=== PATIENT | female | born 1985 | race Caucasian/White ===

== ENCOUNTER 2017-02-17 04:29 | Inpatient (IN) | payer OTHER ==
[2017-02-17] MEDS ORDERED: Penicillin G Potassium 5 MILLUNITS in Sodium Chloride 0.9% 100 ML IV STA (08:01)
[2017-02-17] MEDS ORDERED: Lactated Ringers 1,000 ML IV SCH (08:15)
[2017-02-17] MEDS ORDERED: Ondansetron 4 MG/2 ML SDV IV ONE (08:23)
[2017-02-17] MEDS ORDERED: Benzocaine/Menthol 20%-0.5% Spray 56 GM Canister TOP PRN (08:54)
[2017-02-17] MEDS ORDERED: Oxytocin 10 Units/1 ML SDV IM PRN (08:54)
[2017-02-17] MEDS ORDERED: Misoprostol 400 MCG (4 X 100 MCG TAB) RECTAL PRN (08:54)
[2017-02-17] MEDS ORDERED: Simethicone 80 MG Tab.Chew PO PRN (08:54)
[2017-02-17] MEDS ORDERED: Sodium Chloride 0.9% 10 ML Syringe FLUSH PRN (08:54)
[2017-02-17] MEDS ORDERED: Carboprost Tromethamine 250 MCG/1 ML Amp IM PRN (08:54)
[2017-02-17] MEDS ORDERED: Zolpidem 5 MG Tab PO PRN (08:54)
[2017-02-17] MEDS ORDERED: Oxytocin/Normal Saline 30 UNIT/500 ML BAG IV SCH (09:00)
[2017-02-17] MEDS: Docusate Sodium 100 MG Cap PO PRN ×2 (10:29→21:31)
[2017-02-17] MEDS: Prenatal Multivitamin with Calcium/Folic Acid/Iron Tab PO SCH (10:29)
[2017-02-17] MEDS: Ibuprofen 800 MG Tab PO PRN ×2 (10:29→19:34)
--- NOTE | 2017-02-17 13:15 | DEL ---
DATE: 02/18/2016 PREOPERATIVE DIAGNOSES: 1. Intrauterine at 38 and 4/7 weeks confirmed with 9 week ultrasound. 2. Active labor with contractions with rapid late first stage of labor and subsequently rapid delivery. 3. Gestational thrombocytopenia with platelets of 133,000 upon admit. 4. Group B Streptococcus positive with antibiotics called for in a stat fashion with patient on first dose with delivery. 5. Impaired glucose tolerance. 6. 3, para 2-0-0-2. POSTOPERATIVE DIAGNOSES: 1. Intrauterine at 38 and 4/7 weeks confirmed with 9 week ultrasound, delivered. 2. Active labor with contractions with rapid late first stage of labor and subsequently rapid delivery. 3. Gestational thrombocytopenia with platelets a 133,000 upon admit. 4. Group B Streptococcus positive with antibiotics called for in a stat fashion with patient on first dose with delivery. 5. Impaired glucose tolerance. 6. 3, para 2-0-0-2. 7. First-degree perineal laceration, less than 1 cm, nonbleeding, non-repaired after discussion with the patient. PROCEDURE PERFORMED: NST and then subsequent spontaneous vaginal delivery. PERFORMED BY: Franck Ojeda MD. ANESTHESIA/ANALGESIA: None. ESTIMATED BLOOD LOSS: 150 mL. FINDING: Male with scores of 9 and 9, weight pending. SUMMARY OF EVENTS: The patient is a 31-year-old, G3, P2-0-0-2 intrauterine at 38 and 4/7 weeks confirmed by 9 week ultrasound admitted on the above date with the above diagnoses. She was initially evaluated, was found to be 3+ cm, which she has been around in the clinic. Followed for an hour, went to about 4 cm, and then contractions were not regular at that time. She subsequently followed and went rapidly into the first stage of labor. She was found to be 5+ cm requesting intrathecal, this was called for, as well as penicillin called for in a stat fashion. Subsequently, patient rapidly progressed into the second stage of labor. Penicillin was currently being given as she was in the second stage of labor. She had an urge to push and was found to be at +2 station and complete. Subsequently pushed with 2 contractions and subsequently vertex was delivered in JOSÉ LUIS presentation followed by anterior and posterior shoulder as well as rest of the without difficulty. Mouth and nares were suctioned. Cord was doubly clamped and cut. Infant was resuscitated on the warmer. Then, approximately 10 mL cord blood obtained for labs. Placenta then delivered with gentle cord traction and fundal massage within 5 minutes. Perineum, vagina, and perirectal areas were then examined with a small first- degree perineal laceration, nonbleeding and non-repaired after discussion with the patient. Mother and infant are currently stable at the time of dictation. [facility] /[id number]
--- NOTE | 2017-02-17 13:18 | HP ---
PATIENT IDENTIFICATION: Lupe Plascencia is a 31-year-old, G3, P2-0-0-2 intrauterine at 38 and 4/7 weeks, confirmed by 9 week ultrasound who presents with contractions. HISTORY OF PRESENT ILLNESS: The patient states contractions started on nuclear logging engineer of admission, increasing in frequency and intensity to the point that they are felt every 2 to 5 minutes, felt in the lower abdomen, time it made worse. Nothing seemed to make it better. She questioned the nurse if she leaking. Evaluation done by nurse, Nitrazine negative. Bag of water was suspected and the patient was kept on the floor to evaluate for potential for labor. She changed from a 3+ to 4 cm over an hour and a half and subsequently her contractions were coming every 2 to 5 minutes at that time. She subsequently was followed closely thereafter and nurse found her to be rapidly dilating to more than 5 cm. Penicillin was called for in a stat fashion and patient was requesting intrathecal. PAEDIATRIC PHYSIOTHERAPIST was subsequently called. As penicillin was being given, patient subsequently had a spontaneous vaginal delivery. Please see delivery note for further details. Records were called for and reviewed as below and supplemented by patient history. OBSTETRICAL HISTORY: 1. On 03/31/2015, delivered a female, 39 and 1/7 weeks, weighing 3232 g. 2. On 07/21/2008, delivered a male, spontaneous vaginal delivery at 40 weeks, 3657 g. ANTEPARTUM LABS: ABO blood type A positive, negative antibody. Rubella immune. Syphilis antibody was nonreactive. Negative hepatitis B surface antigen. Negative hep C, HIV, GC, and Chlamydia. Wet prep within normal limits. One- hour GTT was 155, 3-hour GTT negative for gestational diabetes. GBS was positive in 3rd trimester. Platelets on 02/11/2017, were 140 with hemoglobin being 13. ALLERGIES: None. MEDICATIONS: vitamins. PAST MEDICAL/PAST SURGICAL HISTORY: Remarkable for tympanostomy tube placement as a child and tympanic membrane repair as a child. FAMILY HISTORY: Mother side has colon cancer. Hypertension in father. Negative family history of anesthesia, bleeding problems, defects, thyroid disease, or diabetes. SOCIAL HISTORY: , lives with in [place]. They have a cat in the household. Working at [employer] in the [place]. No smoke, no alcohol, no tobacco use. REVIEW OF SYSTEMS: Quickly obtained, and otherwise felt to be noncontributory. OBJECTIVE: Vital Signs: Blood pressure 118/81, heart rate 72, temperature 97.9. Appearance: Female appears stated age, acting appropriate for age, nontoxic in appearance, breathing through her contractions, answering questions appropriately upon my evaluation. HEENT: Head is atraumatic. EOMs intact. No scleral icterus. No obvious otorhinorrhea. Mucous members moist. Neck: No obvious tenderness. Lungs: Clear to auscultation bilaterally. Heart: S1 and S2. Regular rate and rhythm. Abdomen: Gravid. Monitors were applied. Genitourinary: Normal external female genitalia. Normal position and presentation of urethra. Vaginal exam per me, upon my initial evaluation, found her to be complete, +2 station, vertex suspected. Extremities: No peripheral edema. Deep tendon reflexes 2-3 out of 4 bilaterally and symmetric in the lower extremities. Psychiatric: Mood and affect are congruent. Judgment and insight intact. Skin: No cyanosis, clubbing, or jaundice. Minimal excoriations and 2-3 mm erythematous waller noted on the lower extremities, which the patient has had chronically. LABORATORY DATA: Reveal white cell count 8.9, hemoglobin 11.9, platelets a 133,000. Initial evaluation with nonstress test revealed her to be reactive and reassuring. Tocometer revealed only occasional contraction at times. ASSESSMENT: 1. Intrauterine 38 and 4/7 weeks confirmed by 9 week ultrasound. 2. Active labor. 3. Gestational thrombocytopenia. 4. Group B Streptococcus positive, on the 1st dose of antibiotics with delivery, please see delivery note for further details. 5. Impaired glucose tolerance. 6. Status post 2 doses of betamethasone in 01/2017 for uterine contractions. 7. 3, para 2-0-0-2. PLAN: The patient was admitted. She went on to have a rapid labor then subsequent rapid delivery. Please see delivery note for further details. [facility] /[id number]
--- NOTE | 2017-02-17 13:30 | OBOUT ---
DATE: 02/17/2017 DATE AND TIME OF NST: Date: 02/17/2017. Time: 0442 hours to 0502 hours. REASON FOR NST: 1. Intrauterine at 38 and 4/7 weeks confirmed by 9 week ultrasound. 2. Contractions, questionable labor. 3. Gestational thrombocytopenia. 4. GBS positive. 5. Impaired glucose tolerance. 6. G3, P2-0-0-2. NST INTERPRETATION: During this time period, heart tone baseline is approximately 130, and there are at least two 15 x 15 beat per minute accelerations, making this strip reactive. It is also noted to be reassuring. Tocometer reveals potential of one contraction. During this time period. Blood pressure 126/82, heart rate 68. ASSESSMENT: 1. Nonstress test-reactive and reassuring. 2. Tocometer occasional contraction. PLAN: Please see admit history and physical for further details as well as delivery note. [facility] /[id number]
[2017-02-17] MEDS: Acetaminophen 325 MG Tab PO PRN ×2 (13:50→21:31)
[2017-02-18] MEDS: Ibuprofen 800 MG Tab PO PRN ×2 (09:21→20:27)
[2017-02-18] MEDS: Docusate Sodium 100 MG Cap PO PRN ×2 (09:22→20:26)
[2017-02-18] MEDS: Prenatal Multivitamin with Calcium/Folic Acid/Iron Tab PO SCH (09:22)
--- NOTE | 2017-02-18 10:03 | PN ---
DATE: 02/18/2017 day #1. SUBJECTIVE: The patient is tolerating p.o., ambulating, urinating, and passing flatus. OBJECTIVE: Vital Signs: Last set of vitals updated and listed in chart reveals a temperature 98.2, heart rate 75, blood pressure 140/72, and respiratory rate 18. Lungs: Clear to auscultation bilaterally. Heart: S1 and S2. Regular rate and rhythm. Abdomen: Firm uterus around the umbilicus. Extremities: No peripheral edema. No calf pain. LABORATORY DATA: Labs reveal a white cell count of 7.8, hemoglobin 11.2, and platelets down to 106,000. ASSESSMENT AND PLAN: 1. day #1, status post spontaneous vaginal delivery. 2. Gestational thrombocytopenia. Platelets dropping from 133,000 to 106,000. No evidence of active bleeding noted. The patient states her bleeding is under control. We will check a CBC tomorrow and follow up clinically and closely. The patient understands and agrees with the above treatment plan. [facility] /[id number]
[2017-02-19] MEDS: Ibuprofen 800 MG Tab PO PRN (06:11)
[2017-02-19] MEDS: Prenatal Multivitamin with Calcium/Folic Acid/Iron Tab PO SCH (08:12)
[2017-02-19] MEDS: Docusate Sodium 100 MG Cap PO PRN (08:12)
[2017-02-19 08:21] VITALS: BP 114/65
--- NOTE | 2017-02-22 09:32 | DISCH ---
ADMIT DIAGNOSES: 1. Intrauterine at 38-4/7 weeks confirmed with 9-week ultrasound. 2. Active labor-contractions upon admission. 3. Gestational thrombocytopenia with platelets of 133,000. 4. Group B Streptococcus positive. 5. Impaired glucose tolerance. 6. 3, para 2-0-0-2. DISCHARGE DIAGNOSES: 1. Intrauterine at 38-4/7 weeks confirmed with 9-week ultrasound, delivered. 2. Active labor-contractions upon admission. 3. Gestational thrombocytopenia with platelets of 133,000. 4. Group B Streptococcus positive. 5. Impaired glucose tolerance. 6. 3, para 2-0-0-2. 7. First-degree perineal laceration of less than 1 cm, nonbleeding, non- repaired after discussion with the patient. 8. Antibiotics given during delivery. PROCEDURE PERFORMED: NST followed by spontaneous vaginal delivery. Procedure was performed by Franck Ojeda MD. HISTORY OF PRESENT ILLNESS: Please see H and P. SUMMARY OF HOSPITAL COURSE: The patient was admitted on the above date with the above diagnoses, was in active labor, underwent NST, and went rapidly into labor after some serial evaluations, which did not reveal that she was significantly having cervical change. Antibiotics were called for stat and given as soon as possible, and subsequently, the patient went on to have a spontaneous vaginal delivery yielding a male with scores of 9 and 9 weighing 6 pounds 10 ounces. Please see delivery note for further details. day #1, please see progress note. day #2, date of discharge, the patient was tolerating p.o. ambulating, urinating, and passing flatus. DISCHARGE PHYSICAL EXAMINATION: Vital Signs: Last set of vitals updated and listed in the chart. Temperature 98.2, heart rate 68, blood pressure 114/65, and respiratory rate 16. Lungs: Clear to auscultation bilaterally. Heart: S1 and S2. Regular rate and rhythm. Abdomen: Firm uterus around the umbilicus. Extremities: No peripheral edema. No calf pain. DISCHARGE LABORATORY DATA: Reveal white cell count 8, hemoglobin 11.2, and platelets stable at 117,000 increasing from the lowest 106,000 on 02/18/2017. CONDITION ON DISCHARGE COMPARED TO CONDITION ON ADMISSION: Improved. DISCHARGE INSTRUCTIONS: 1. Diet: As tolerated. 2. Activity: No lifting more than 20 pounds, no sit-ups, straining, and pelvic rest for the next 6 weeks with immediate return to fertility discussed with the patient. 3. Reasons to return or go to the emergency room were discussed with the patient in detail including, but not limited to, temperature greater than 100.4, foul-smelling discharge, red hot tender breasts, or increased vaginal bleeding. DISCHARGE MEDICATIONS: 1. [id number] Tylenol or ibuprofen for pain. 2. vitamins while . FOLLOWUP: Follow up in 6 weeks for visit. I did discuss the importance of followup and ramifications of not doing so as well as reasons to return or go to the emergency room in regard to her . [facility] /[id number]
== END 2017-02-19 10:10 | disposition home or self-care (01) | DRG 775 ==
LOC: DL.OBCHECK 04:29 → DL.OB 08:07 → OBSVTOIN 08:41 → DL.OB 08:41
PROVIDERS: ADMIT Family Medicine; ATTEND Family Medicine
PROC: 10E0XZZ Delivery of Products of Conception, External Approach (ICD-10-PCS; principal; 2017-02-17)
PROC: 00HU33Z Insertion of Infusion Device into Spinal Canal, Percutaneous Approach (ICD-10-PCS; 2017-02-17)
PROC: 3E0R3BZ Introduction of Anesthetic Agent into Spinal Canal, Percutaneous Approach (ICD-10-PCS; 2017-02-17)
DX: O99.12 Other diseases of the blood and blood-forming organs and certain disorders involving the immune mechanism complicating childbirth (principal); D69.6 Thrombocytopenia, unspecified; O99.824 Streptococcus B carrier state complicating childbirth; O70.0 First degree perineal laceration during delivery; Z3A.39 39 weeks gestation of pregnancy; Z37.0 Single live birth
CPT/HCPCS: 36415; 59409; 85027; A9270-GY; J2405; J2540; J2590; J7050; J7120